=== PATIENT | female | born 1965 | race Hispanic/Latino ===

== ENCOUNTER → 2021-03-25 | Outpatient (CLI) | payer OTHER ==
[~2021-03-25] MED LIST: ADV250 IH; ALBU8.5H8 IH; AZIT500T PO; CEFD300C3 PO; FLUO20CA35 PO; GLYB2.5T6 PO; METF-444 PO; PRED20TA3 PO
== END | disposition home or self-care (01) ==
LOC: RAH 15:54
PROVIDERS: ATTEND Family Medicine
DX: Z12.31 Encounter for screening mammogram for malignant neoplasm of breast (principal)
CPT/HCPCS: 77067

== ENCOUNTER → 2023-07-11 | Outpatient (CLI) | payer OTHER ==
[~2023-07-11] MED LIST changes: -FLUO20CA35 PO; +FLUO20CA36 PO
== END | disposition home or self-care (01) ==
LOC: SHCH 10:38
PROVIDERS: ATTEND Internal Medicine Cardiovascular Disease
DX: I65.23 Occlusion and stenosis of bilateral carotid arteries (principal)
CPT/HCPCS: 93880

== ENCOUNTER → 2023-07-16 | Outpatient (CLI) | payer OTHER ==
[~2023-07-16] MED LIST changes: +REGADENOSON 0.4 MG/5 ML PF SYG IVP ONE
== END | disposition home or self-care (01) ==
LOC: SHCH 08:30
PROVIDERS: ATTEND Internal Medicine Cardiovascular Disease
DX: Z01.810 Encounter for preprocedural cardiovascular examination (principal); I10 Essential (primary) hypertension
CPT/HCPCS: 78452; 96374; 93017; J2785; A9500 ×2

== ENCOUNTER → 2023-12-24 | Outpatient (CLI) | payer OTHER ==
[~2023-12-24] MED LIST changes: -ADV250 IH; -ALBU8.5H8 IH; -AZIT500T PO; +EZET10TA48 PO; -FLUO20CA36 PO; +FOLI0.8T43 PO; -GLYB2.5T6 PO; +HYDR50TA37 PO; +LACT10SO85 PO; +LEVO100C4 PO; +LISI40TA9 PO; -METF-444 PO; +METO50TA18 PO; -PRED20TA3 PO; -REGADENOSON 0.4 MG/5 ML PF SYG IVP ONE; +SEVE0.8P3 PO
== END | disposition home or self-care (01) ==
LOC: SHCH 07:47
PROVIDERS: ATTEND Internal Medicine Cardiovascular Disease
DX: I70.202 Unspecified atherosclerosis of native arteries of extremities, left leg (principal)
CPT/HCPCS: 93925

== ENCOUNTER → 2024-02-15 | Outpatient (CLI) | payer OTHER ==
[2024-02-15 12:46] LABS: BASOPHILS # (AUTO) 0.04 K/uL (0.00-0.20); BASOPHILS % (AUTO) 0.6 % (0.0-5.0); EOSINOPHILS # (AUTO) 0.18 K/uL (0.00-0.70); EOSINOPHILS % (AUTO) 2.8 % (0.0-8.0); HEMATOCRIT 37.3 % (36-48); IMMATURE GRANULOCYTE ABSOLUTE 0.03 K/uL (0-1); LYMPHOCYTES # (AUTO) 0.9 K/uL (1.0-4.8); LYMPHOCYTES % (AUTO) 14.1 % (21.0-51.0); MEAN CORPUSCULAR HEMOGLOBIN 31.5 pg (27.0-33.0); MEAN CORPUSCULAR HGB CONC 31.4 g/dL (32.0-36.0); MEAN CORPUSCULAR VOLUME 100.5 fL (79-99); MONOCYTES # (AUTO) 0.5 K/uL (0.1-1.0); MONOCYTES % (AUTO) 6.9 % (3.0-13.0); NEUTROPHILS # (AUTO) 4.9 K/uL (1.8-7.7); NEUTROPHILS % (AUTO) 75.1 % (40.0-77.0); PLATELET COUNT (AUTO) 298 K/uL (130-400); RED BLOOD CELL COUNT(AUTO) 3.71 MIL/uL (4.00-5.50); RED CELL DISTRIBUTION WIDTH 14.6 % (11.0-15.5); WHITE BLOOD COUNT (AUTO) 6.5 K/uL (4.8-10.8)
[2024-02-15 13:07] LABS: CREATININE 4.7 mg/dL (0.5-1.0); INR <= 0.93 (0.85-1.15); POTASSIUM 4.2 mmol/L (3.5-5.1); PROTHROMBIN TIME 10.4 SEC (9.6-11.6)
[2024-02-15 13:09] LABS: PARTIAL THROMBOPLASTIN TIME 31.5 SEC (26.3-35.5)
== END | disposition home or self-care (01) ==
LOC: LAB 10:34
PROVIDERS: ATTEND Student in an Organized Health Care Education/Training Program
DX: I10 Essential (primary) hypertension (principal); R06.02 Shortness of breath; Z79.899 Other long term (current) drug therapy; Z98.890 Other specified postprocedural states
CPT/HCPCS: 36415; 80048; 85025; 85610; 85730

== ENCOUNTER 2024-04-16 20:21 | Emergency (ER) | payer OTHER ==
[~2024-04-16] VITALS: Ht 167.6 cm; Wt 68.0 kg
[2024-04-16 20:53] LABS: APPEARANCE,URINE CLOUDY (CLEAR); BILIRUBIN,URINE NEGATIVE (NEGATIVE); COLOR,URINE COLORLESS (YELLOW); GLUCOSE, URINE (UA) 70 mg/dL (NEGATIVE); KETONES,URINE NEGATIVE (NEGATIVE); LEUKOCYTE ESTERASE ,URINE NEGATIVE Leu/uL (NEGATIVE); NITRATE,URINE NEGATIVE (NEGATIVE); OCCULT BLOOD,URINE LARGE (NEGATIVE); PH,URINE 8.5 (5.0-8.0); PROTEIN,URINE 600 mg/dL (NEGATIVE); UROBILINOGEN,URINE 0.2 mg/dL (0.2-1.0)
[2024-04-16 20:57] LABS: ADD UA MICROSCOPIC YES
[2024-04-16 20:59] LABS: RBC,URINE >100 /HPF (0-1)
[2024-04-16 20:59] LABS: RAPID GROUP A STREP negative (NEGATIVE)
[2024-04-16 21:09] LABS: COVID19 (SARS ANTIGEN RAPID) PRESUMPTIVE NEGATIVE (NEGATIVE); INFLUENZA TYPE A Negative For Type A (NEGATIVE); INFLUENZA TYPE B Negative For Type B (NEGATIVE)
[2024-04-16 21:57] LABS: BASOPHILS # (AUTO) 0.03 K/uL (0.00-0.20); BASOPHILS % (AUTO) 0.2 % (0.0-5.0); EOSINOPHILS # (AUTO) 0.12 K/uL (0.00-0.70); EOSINOPHILS % (AUTO) 0.9 % (0.0-8.0); HEMATOCRIT 34.7 % (36-48); IMMATURE GRANULOCYTE ABSOLUTE 0.05 K/uL (0-1); LYMPHOCYTES # (AUTO) 0.8 K/uL (1.0-4.8); LYMPHOCYTES % (AUTO) 6.4 % (21.0-51.0); MEAN CORPUSCULAR HEMOGLOBIN 30.6 pg (27.0-33.0); MEAN CORPUSCULAR HGB CONC 32.9 g/dL (32.0-36.0); MONOCYTES # (AUTO) 0.7 K/uL (0.1-1.0); MONOCYTES % (AUTO) 5.6 % (3.0-13.0); NEUTROPHILS % (AUTO) 86.5 % (40.0-77.0); PLATELET COUNT (AUTO) 313 K/uL (130-400); RED BLOOD CELL COUNT(AUTO) 3.73 MIL/uL (4.00-5.50); WHITE BLOOD COUNT (AUTO) 12.8 K/uL (4.8-10.8)
[2024-04-16 22:07] LABS: CREATININE 5.7 mg/dL (0.5-1.0)
[2024-04-16] MEDS: LACTATED RINGERS 1000ML 1,000 ML IV ONE (23:08)
[2024-04-16] MEDS: ACETAMINOPHEN 325 MG TAB PO ONE (23:09)
[2024-04-17 00:19] VITALS: TEMP 99
[2024-04-17 00:20] VITALS: BP 168/69; PULSE 79; RESP 18; O2SAT 98
[2024-04-17] MEDS: CEFTRIAXONE 1G VIAL IVPB ONE (01:37)
== END 2024-04-17 01:53 | disposition home or self-care (01) ==
LOC: EDH 20:21
DX: N93.9 Abnormal uterine and vaginal bleeding, unspecified (principal); E03.9 Hypothyroidism, unspecified; I12.0 Hypertensive chronic kidney disease with stage 5 chronic kidney disease or end stage renal disease; E11.22 Type 2 diabetes mellitus with diabetic chronic kidney disease; N18.6 End stage renal disease; R10.2 Pelvic and perineal pain; Z99.2 Dependence on renal dialysis; Z79.890 Hormone replacement therapy; Z79.899 Other long term (current) drug therapy; Z85.41 Personal history of malignant neoplasm of cervix uteri; Z88.8 Allergy status to other drugs, medicaments and biological substances; Z20.822 Contact with and (suspected) exposure to COVID-19
CPT/HCPCS: 99285; 76856; 87426; 80048; 84702; 85025; 87086; 87880; 87804 ×2; 81001; 36415; 96374; J7120; J0696

== ENCOUNTER → 2024-07-02 | Outpatient (CLI) | payer OTHER ==
[2024-07-02 12:27] LABS: ALBUMIN 3.5 g/dL (3.5-5.0); BILIRUBIN,TOTAL 0.3 mg/dL (0.2-1.0); CREATININE 5.7 mg/dL (0.5-1.0); POTASSIUM 4.6 mmol/L (3.5-5.1); TOTAL PROTEIN, SERUM 7.7 g/dL (6.0-8.3)
[2024-07-02 12:30] LABS: HEMOGLOBIN A1C 4.8 % (4.0-6.0)
== END | disposition home or self-care (01) ==
LOC: LAB 09:03
PROVIDERS: ATTEND Student in an Organized Health Care Education/Training Program
DX: I11.9 Hypertensive heart disease without heart failure (principal); I73.9 Peripheral vascular disease, unspecified; E78.5 Hyperlipidemia, unspecified; Z79.899 Other long term (current) drug therapy
CPT/HCPCS: 36415; 80053; 80061; 83036

== ENCOUNTER 2024-08-14 10:18 | Emergency (ER) | payer OTHER ==
[~2024-08-14] VITALS: Ht 175.3 cm; Wt 65.9 kg
[2024-08-14 10:19] VITALS: BP 136/65; PULSE 74; RESP 16; TEMP 98.2; O2SAT 99
--- NOTE | 2024-08-14 10:33 | NUR ---
PT JUST NOW PLACED IN MY ED HALLWAY A
--- NOTE | 2024-08-14 10:34 | ERN ---
ED Note History of Present Illness Stated Complaint: LOOSE STOOLS Chief Complaint: Diarrhea Time Seen by MD: 10:23 Dictation: 58-YEAR-OLD FEMALE COMING IN TODAY WITH COMPLAINTS OF DIARRHEA ONSET THE OF LAST MONTH AND HAS BEEN CONTINUOUS DAILY. SHE DENIES ABDOMINAL PAIN NO FEVER NO CHILLS NO NAUSEA VOMITING. SHE STATES SHE HAS NOT BEEN TO SEE HER PRIMARY CARE DOCTOR, HOWEVER HER SPINNING FRAME FIXER TOLD HER TAKE IMODIUM [id number]. SHE STATES SHE IS HAVING STOOLS ON A DAILY BASIS HAD TWO ALREADY THIS MORNING. Allergies: Coded Allergies: No Allergy Information Available (Verified Allergy, Unknown, 05/20/16) atorvastatin (Unverified Allergy, Unknown, RASH, 12/09/23) canagliflozin (Unverified Allergy, Unknown, RASH, 12/09/23) meloxicam (Unverified Allergy, Unknown, RASH, 12/09/23) pravastatin (Unverified Allergy, Unknown, RASH, 12/09/23) Home Meds Active Scripts Vancomycin HCl (Vancocin HCl) 125 Mg Capsule, 1 CAP PO QID for 10 Days, #40 CAP 0 Refills Prov:DELBERT ALAMO NP 08/14/24 Diphenoxylate HCl/Atropine (Lomotil Tablet) 2.5 Mg-0.025 Mg Tablet, 1 TAB PO QID for 5 Days, #20 TAB 0 Refills Prov:DELBERT ALAMO NP 08/14/24 Lactulose (Lactulose) 10 Gram/15 Ml Solution, 10 GM PO DAILY PRN for CONSTIPATION, #300 ML 0 Refills Prov:RAQUEL ROSENP 12/12/23 Reported Medications Ezetimibe (Ezetimibe) 10 Mg Tablet, 10 MG PO DAILY, TAB 12/10/23 Folic Acid/Vit Bcomp,C (Renal-Zach Tablet) 0.8 Mg Tablet, 0.8 MG PO DAILY, TAB 12/10/23 Levothyroxine Sodium (Levothyroxine) 100 Mcg Capsule, 100 MCG PO DAILY, CAP 12/10/23 Cefdinir (Cefdinir) 300 Mg Capsule, 300 MG PO DAILY, CAP 12/10/23 Metoprolol Tartrate (Metoprolol Tartrate) 50 Mg Tablet, 50 MG PO BID, TAB 12/10/23 Hydralazine HCl (Hydralazine HCl) 50 Mg Tablet, 50 MG PO TID, TAB 12/10/23 Lisinopril (Lisinopril) 40 Mg Tablet, 40 MG PO DAILY, TAB 12/10/23 Sevelamer Carbonate (Sevelamer Carbonate) 0.8 Gram Powd.pack, 0.8 GM PO TID 12/10/23 Past Medical History Past Medical History: Anemia, Diabetes-Type II, DVT, Hypertension, Other Additional Past Medical Hx: ESRD, PVD Surgical History: Other Surgical History Other: LEFT UPPER ARM DIALYSIS GRAFT, LEFT LEG STENT History: Not Applicable : 3 Para: 3 Aborts: 0 RN Note Reviewed/Agreed w/PFSH: Yes Review of System Dictation CONSTITUTIONAL: NEGATIVE EXCEPT FOR HPI HEAD/FACE: NEGATIVE EXCEPT FOR HPI EENT: NEGATIVE EXCEPT FOR HPI RESPIRATORY: NEGATIVE EXCEPT FOR HPI GASTROINTESTINAL/ABDOMINAL: NEGATIVE EXCEPT FOR HPI CHRONIC DIARRHEA GENITOURINARY: NEGATIVE EXCEPT FOR HPI MUSCULOSKELETAL: NEGATIVE EXCEPT FOR HPI INTEGUMENTARY: NEGATIVE EXCEPT FOR HPI NEUROLOGICAL/PSYCH: NEGATIVE EXCEPT FOR HPI HEMATOLOGIC/LYMPHATIC: NEGATIVE EXCEPT FOR HPI ALL SYSTEMS NEGATIVE, EXCEPT NOTED ABOVE. 13 POINT REVIEW OF SYSTEMS ASSESSED AND ALL NEGATIVE EXCEPT FOR ABOVE. Initial Vital Sign VS Vital Signs Date Time Temp Pulse Resp B/P (MAP) Pulse Ox O2 Delivery O2 Flow Rate FiO2 08/14/24 10:19 98.2 74 16 136/65 99 Room Air* 0 21 Physical Exam Dictation VITAL SIGNS REVIEWED 0/10 PAIN GENERAL APPEARANCE: ALERT, ORIENTED X 3, NO ACUTE DISTRESS, WELL DEVELOPED, NOURISHED. HEAD AND FACE: NON-TRAUMATIC. EYES: PERRL, PINK CONJUNCTIVAS, EYELID NO TRAUMA, ANTERIOR CHAMBER WITH ARCUS SENILIS. EARS: PINNAS INTACT AND NO SIGNS OF TRAUMA OR ERYTHEMA EAR CANALS CLEAR AND NO DISCHARGE TM NO ERYTHEMA NOSE: NO DISCHARGE, NO BLEEDING. OROPHARYNX: MOUTH NORMAL, TONGUE PINK, PHARYNX CLEAR,NO ERYTHEMA, TONSILS NO EXUDATES, NO ABSCESSES NOTED, MUCOUS MEMBRANE MOIST NECK: SUPPLE, NON-TENDER, NO THYROMEGALY, NO MASSES, NO JVD, NO BRUITS BREAST:DEFERRED CHEST:NO TENDERNESS, NO CREPITUS, NO PARADOXICAL MOVEMENT, NO RETRACTIONS LUNGS:CLEAR, WELL-VENTILATED, SYMMETRIC, NO RALES, NO WHEEZING, NO RHONCHI, NO STRIDOR, GOOD BREATH SOUNDS BILATERALLY HEART: REGULAR RATE, REGULAR RHYTHM, NO MURMUR, NO GALLOPS VASCULAR: NO PERIPHERAL EDEMA, ABDOMEN: SOFT, POSITIVE BOWEL SOUNDS, NONDISTENDED, NO GUARDING, NONTENDER, NO REBOUND, NO MASSES NO HEPATOMEGALY, NO SPLENOMEGALY, NO STOVALL'S SIGN, NO HERNIAS. RECTAL: DEFERRED GENITAL: DEFERRED NEUROLOGICAL: NORMAL SPEECH, MOTOR FUNCTION INTACT, SENSORY FUNCTION INTACT MUSCULOSKELETAL: NECK NONTENDER, FULL RANGE OF MOTION, BACK NONTENDER, FULL RANGE OF MOTION, EXTREMITIES: NONTENDER, FULL RANGE OF MOTION SKIN: COLOR PINK, DRY, NO TURGOR, NO RASH, NO LACERATIONS, NO ABRASIONS, NO CONTUSIONS. LYMPHATIC: DEFERRED Results (Laboratory/Radiology) Laboratory/Radiology Labs Reviewed?: Yes ED Course ED Course 1232, SPOKE WITH LAB AND BOTH SPECIMENS THAT WERE SENT FOR STOOL ARE SEND OUTS AND WE WILL NOT BE AVAILABLE FOR READING FOR SEVERAL DAYS. PATIENT WILL BE DISCHARGED HOME WITH LOMOTIL TOLD TO SEE HER PRIMARY CARE DOCTOR Medical Decision Making MDM MDM: DIFFERENTIAL DIAGNOSIS: INFECTIOUS DIARRHEA/FOOD POISONING/DEHYDRATION/ELECTROLYTE IMBALANCE RATIONALE: TESTS CONSIDERED AND ORDERED SECONDARY TO SHARED DECISION MAKING INCLUDE: STOOL SAMPLE/LABS PREVIOUS OUTSIDE RECORDS REVIEWED: OLD ER VISITS. REVIEWED RISK OF COMPLICATION AND/OR MORBIDITY OR MORTALITY OF PATIENT MANAGEMENT: NONE MEDICATIONS-PER MEDICATION RECONCILIATION SEE NURSE'S NOTES NEED FOR HOSPITALIZATION: PATIENT DOES NOT MEET CRITERIA FOR HOSPITALIZATION. NO NEED FOR EMERGENCY MAJOR/MINOR SURGERY: NO THERE ARE NO SOCIAL CONCERNS WITH THIS PATIENT. PRESCRIPTION DRUG MANAGEMENT LOMOTIL PRESCRIPTIONS WILL INCLUDE SYMPTOMATIC CARE PATIENT'S PRIOR EXTERNAL MEDICAL RECORDS FROM OTHER ER VISITS WERE REVIEWED BY ME INDICATED. PRIOR TESTING AND RESULTS FROM PREVIOUS VISITS WERE REVIEWED. PRIOR TESTS WERE TAKEN INTO ACCOUNT WITH MEDICAL DECISION MAKING AND RESOURCE UTILIZATION, INDEPENDENT HISTORIAN/HISTORIANS WERE USED TO OBTAIN COMPLETE MEDICAL HISTORY. I INDEPENDENTLY INTERPRETED THE TEST THAT WERE PERFORMED, RESULTS WERE REVIEWED BY ME AND CONSIDERED FINDINGS ON RADIOLOGY IF ORDERED. MEDICAL MANAGEMENT AND EXAMINATION INTERPRETATION DISCUSSIONS WERE HAD BY ME WITH OTHER QUALIFIED HEALTHCARE PROFESSIONALS INDICATED FOR THE PATIENT'S CARE. Critical Care Note Comment(s) 2100. RECEIVED RESULTS BACK FROM GI PCR AND PATIENT POSITIVE FOR C DIFFICILE. CALLED HOME PHONE NUMBER AND LEFT A MESSAGE ON RECORD OR FOR PATIENT TO CALL ME BACK AT THIS NUMBER ALSO, SENT [id number] MG P.O. Q.I.D. FOR 10 DAYS TO HER [facility]. DX & DISP Disposition: Discharge Departure Impression: Primary Impression: Diarrhea Additional Impressions: ESRD (end stage renal disease) on dialysis, Anemia, chronic renal failure Condition: Stable Scripts Vancomycin HCl (Vancocin HCl) 125 Mg Capsule 1 CAP PO QID for 10 Days, #40 CAP 0 Refills Prov: DELBERT ALAMO NP 08/14/24 Diphenoxylate HCl/Atropine (Lomotil Tablet) 2.5 Mg-0.025 Mg Tablet 1 TAB PO QID for 5 Days, #20 TAB 0 Refills Prov: DELBERT ALAMO NP 08/14/24 Additional Instructions: Follow-up with primary care provider in 1 to 2 days. Take medications as directed here in the emergency room. Okay to continue home medications unless otherwise discussed during your visit in the emergency room today. Return to your nearest emergency room if symptoms worsen or if there is no improvement. Call 911 if you need immediate assistance. Take Tylenol or Motrin [id number] as needed and if no contraindications are present. Increase oral hydration. A wound culture or urine culture was ordered here in the emergency room department please follow-up with primary care provider and advise them to get repeat ports from our facility. If you had any Yordy wrap/splints that were applied here, please do not remove them until you see your primary care or specialty. Take Lomotil after each loose stool, maximum four tablets daily. Follow up with your primary care doctor in 1-2 days for management. No soda pop, ice tea no coffee until cleared by your doctor. Referrals: BRENNA GALLOWAY DO (PCP) Time of Disposition: 12:36 I have reviewed the case, and I agree with I performed this substantive portion of this visit. I have reviewed and personally made and approve the management plan that is documented in the note by myself or the SYDNI. I acknowledge full responsibility for the patient's management plan. DELBERT ALAMO NP Aug 14, 2024 10:34 NORA HERNANDEZ MD Aug 26, 2024 17:54
--- NOTE | 2024-08-14 10:51 | NUR ---
PT JUST NOW COMING OUT OF THE RESTROOM FROM HAVING HAD A BOWEL MOVEMENT AND VOID. UNABLET TO COLLECT URINE D/T STOOL MIXED W/SAMPLE.
[2024-08-14 11:04] LABS: BASOPHILS # (AUTO) 0.03 K/uL (0.00-0.20); BASOPHILS % (AUTO) 0.3 % (0.0-5.0); EOSINOPHILS # (AUTO) 0.17 K/uL (0.00-0.70); EOSINOPHILS % (AUTO) 1.5 % (0.0-8.0); HEMATOCRIT 31.4 % (36-48); IMMATURE GRANULOCYTE ABSOLUTE 0.05 K/uL (0-1); LYMPHOCYTES # (AUTO) 0.9 K/uL (1.0-4.8); LYMPHOCYTES % (AUTO) 8.5 % (21.0-51.0); MEAN CORPUSCULAR HEMOGLOBIN 31.4 pg (27.0-33.0); MEAN CORPUSCULAR HGB CONC 32.8 g/dL (32.0-36.0); MEAN CORPUSCULAR VOLUME 95.7 fL (79-99); MONOCYTES # (AUTO) 0.5 K/uL (0.1-1.0); MONOCYTES % (AUTO) 4.6 % (3.0-13.0); NEUTROPHILS # (AUTO) 9.4 K/uL (1.8-7.7); NEUTROPHILS % (AUTO) 84.6 % (40.0-77.0); PLATELET COUNT (AUTO) 410 K/uL (130-400); RED BLOOD CELL COUNT(AUTO) 3.28 MIL/uL (4.00-5.50); RED CELL DISTRIBUTION WIDTH 15.1 % (11.0-15.5); WHITE BLOOD COUNT (AUTO) 11.1 K/uL (4.8-10.8)
[2024-08-14 11:12] LABS: CREATININE 5.4 mg/dL (0.5-1.0); POTASSIUM 3.9 mmol/L (3.5-5.1)
--- NOTE | 2024-08-14 11:45 | NUR ---
PENDING DISPOSITION. BLOOD RESULTS HAVE BEEN RESULTED.
[2024-08-14] MEDS ORDERED: DIPH1TAB PO (12:37)
--- NOTE | 2024-08-14 19:45 | NUR ---
STOOL CULTURE RESULTS GIVEN TO DELBERT MILLINERY DESIGNER TO REVIEW. PLAN IS TO CALL PATIENT TO FIND OUT PHARMACY AND CALL IN PRESCRIPTION.
[2024-08-14] MEDS ORDERED: VANC125C12 PO (21:01)
== END 2024-08-14 12:57 | disposition home or self-care (01) ==
LOC: EDH 10:18
DX: I12.0 Hypertensive chronic kidney disease with stage 5 chronic kidney disease or end stage renal disease (principal); E11.22 Type 2 diabetes mellitus with diabetic chronic kidney disease; N18.6 End stage renal disease; R19.7 Diarrhea, unspecified; Z99.2 Dependence on renal dialysis; D63.1 Anemia in chronic kidney disease; Z79.890 Hormone replacement therapy; Z79.899 Other long term (current) drug therapy; Z86.718 Personal history of other venous thrombosis and embolism; Z88.8 Allergy status to other drugs, medicaments and biological substances
CPT/HCPCS: 36415; 80048; 85025; 87507; 99283